=== PATIENT | male | born 1960 ===

== ENCOUNTER 2018-06-18 16:07 | Emergency (ER) | payer OTHER ==
[2018-06-18 16:16] VITALS: BMI 27.4
[2018-06-18 16:21] VITALS: BP 151/83; PULSE 77; RESP 18; TEMP 98; O2SAT 99
--- NOTE | 2018-06-18 16:29 | C.PDOC ---
Time Seen by Provider: 06/18/18 16:23 Chief Complaint (Nursing): Lower Extremity Problem/Injury Past Medical History Vital Signs: Last Vital Signs Temp 98.0 F 06/18/18 16:19 Pulse 77 06/18/18 16:19 Resp 18 06/18/18 16:19 BP 151/83 H 06/18/18 16:19 Pulse Ox 99 06/18/18 16:19 - Medical History PMH: HTN, Hypercholesterolemia - Social History Hx Alcohol Use: No Hx Substance Use: No - Immunization History Hx Tetanus Toxoid Vaccination: No Hx Influenza Vaccination: No Hx Pneumococcal Vaccination: No ED Course And Treatment O2 Sat by Pulse Oximetry: 99 Disposition Counseled Patient/Family Regarding: Diagnosis, Need For Followup, Rx Given - Disposition Referrals: [facility] [Outside] [facility] at [facility] [Outside] Disposition: HOME/ ROUTINE Disposition Time: 16:28 Condition: GOOD Prescriptions: Gabapentin [Neurontin] 300 mg PO TID #30 cap traMADol/Acetaminophen [Ultracet 325 MG-37.5 MG] 1 tab PO TID #21 tab Instructions: Paresthesias (DC), Chronic Pain (DC) Print Language: BOTSWANAN - Clinical Impression Clinical Impression: Paresthesia of foot, bilateral, Chronic pain
--- NOTE | 2018-06-18 16:32 | C.PDOC ---
History Of Present Illness 57 year old male presents to the emergency department with complaints of exacerbation of chronic foot pain for the last week. Patient states that he works on his feet a lot, and complains of a burning sensation in both feet. Time Seen by Provider: 06/18/18 16:23 Chief Complaint (Nursing): Lower Extremity Problem/Injury History Per: Patient History/Exam Limitations: no limitations Onset/Duration Of Symptoms: Days (7) Current Symptoms Are (Timing): Still Present - Ankle/Foot Description Of Injury: Other (burning pain) Past Medical History Reviewed: Historical Data, Nursing Documentation, Vital Signs Vital Signs: Last Vital Signs Temp 98.0 F 06/18/18 16:19 Pulse 77 06/18/18 16:19 Resp 18 06/18/18 16:19 BP 151/83 H 06/18/18 16:19 Pulse Ox 99 06/18/18 16:32 - Medical History PMH: HTN, Hypercholesterolemia Surgical History: No Surg Hx Family History: States: No Known Family Hx - Social History Hx Alcohol Use: No Hx Substance Use: No - Immunization History Hx Tetanus Toxoid Vaccination: No Hx Influenza Vaccination: No Hx Pneumococcal Vaccination: No Review Of Systems Except As Marked, All Systems Reviewed And Found Negative. Musculoskeletal: Positive for: Foot Pain (bilateral) Neurological: Negative for: Weakness, Numbness Physical Exam - Physical Exam Appears: Non-toxic, No Acute Distress Skin: Warm, Dry Head: Atraumatic, Normacephalic Eye(s): bilateral: Normal Inspection Neck: Normal, Supple Chest: Symmetrical Cardiovascular: Rhythm Regular Respiratory: Normal Breath Sounds Extremity: Normal ROM, No Tenderness, No Calf Tenderness, No Swelling Extremity: Bilateral: Atraumatic, Normal Color And Temperature Neurological/Psych: Oriented x3, Normal Speech, Normal Cognition ED Course And Treatment O2 Sat by Pulse Oximetry: 99 (RA) Pulse Ox Interpretation: Normal Progress Note: Plan: Tylenol 650mg PO. Neurontin 300mg PO. Ultram 50mg PO Disposition Counseled Patient/Family Regarding: Diagnosis, Need For Followup, Rx Given - Disposition Referrals: [facility] [Outside] [facility] [Outside] Disposition: HOME/ ROUTINE Disposition Time: 16:30 Condition: GOOD Prescriptions: Gabapentin [Neurontin] 300 mg PO TID #30 cap traMADol/Acetaminophen [Ultracet 325 MG-37.5 MG] 1 tab PO TID #21 tab Instructions: Chronic Pain (DC), Paresthesias (DC) Forms: [employer] (Indian) Print Language: PARAGUAYAN - Clinical Impression Clinical Impression: Paresthesia of foot, bilateral, Chronic pain - Scribe Statement The provider has reviewed the documentation as recorded by the Scribe (Brandon Gilbert) Provider Attestation: All medical record entries made by the Scribe were at my direction and personally dictated by me. I have reviewed the chart and agree that the record accurately reflects my personal performance of the history, physical exam, medical decision making, and the department course for this patient. I have also personally directed, reviewed, and agree with the discharge instructions and disposition.
== END 2018-06-18 16:45 | disposition home or self-care (01) ==
LOC: C.ER 16:07
DX: R20.2 Paresthesia of skin (principal); G89.29 Other chronic pain; E78.00 Pure hypercholesterolemia, unspecified; I10 Essential (primary) hypertension

== ENCOUNTER 2018-06-20 15:55 | Emergency (ER) | payer OTHER ==
[2018-06-20 15:56] VITALS: BMI 27.4
[2018-06-20 16:06] VITALS: BP 162/79; PULSE 81; RESP 18; TEMP 98.2; O2SAT 100
--- NOTE | 2018-06-20 16:46 | RAD ---
Date of service: 06/20/2018 PROCEDURE: Left small finger radiographs. HISTORY: injury COMPARISON: None. TECHNIQUE: AP radiograph of the left hand, as well as spot oblique and lateral images of left small finger were obtained. FINDINGS: LEFT SMALL FINGER: Heterotopic calcification or an old chip or avulsion fracture felt to the lateral to the distal segment middle phalanx left small finger with acute fracture not favored. No large fracture involving the left small finger. Incidental note is made of heterotopic calcification related to the proximal phalanx left ring finger, in a pattern fracture deformity proximal phalanx left long finger and partial amputation of the left index finger with only proximal to mid segment of the proximal phalanx remaining. JOINTS: Normal. SOFT TISSUES: Normal. OTHER FINDINGS: None. IMPRESSION: No definite acute fracture dislocation. Heterotopic calcification or old healed avulsion/chip fracture related to the lateral cortical margins of the middle phalanx left small finger. Clinically correlate further. Incidental subtotal amputation left index finger.
--- NOTE | 2018-06-20 16:54 | C.PDOC ---
History Of Present Illness 57yo male, presents to ED with complaints of pain in left fifth digit. Pt was in ED two days ago for injury at work after something fell on him. States he had pain in his pinky finger, but he forgot to complain about it. Denies numbness/weakness, fever. Time Seen by Provider: 06/20/18 16:04 Chief Complaint (Nursing): Finger,Hand,&Wrist History Per: Patient History/Exam Limitations: no limitations Past Medical History Reviewed: Historical Data, Nursing Documentation, Vital Signs Vital Signs: Last Vital Signs Temp 98.2 F 06/20/18 16:00 Pulse 81 06/20/18 16:00 Resp 18 06/20/18 16:00 BP 162/79 H 06/20/18 16:00 Pulse Ox 100 06/20/18 19:52 - Medical History PMH: HTN, Hypercholesterolemia Family History: States: No Known Family Hx - Social History Hx Alcohol Use: No Hx Substance Use: No - Immunization History Hx Tetanus Toxoid Vaccination: No Hx Influenza Vaccination: No Hx Pneumococcal Vaccination: No Review Of Systems Constitutional: Negative for: Fever Musculoskeletal: Positive for: Hand Pain Neurological: Negative for: Weakness, Numbness Physical Exam - Physical Exam Appears: Non-toxic, No Acute Distress Skin: Warm, Dry, No Rash Head: Atraumatic Eye(s): bilateral: Normal Inspection Nose: Normal Oral Mucosa: Moist Lips: Normal Appearing Neck: Normal ROM Chest: Symmetrical Respiratory: No Accessory Muscle Use Extremity: Other (Left hand: 5th digit with swelling and tenderness to DIP) Pulses: Left Radial: Normal, Right Radial: Normal Neurological/Psych: Oriented x3, Normal Speech ED Course And Treatment O2 Sat by Pulse Oximetry: 100 Pulse Ox Interpretation: Normal (RA) - Other Rad XR hand X-Ray: Viewed By Me, Read By Radiologist Interpretation: Accession No. : [id number]. Patient Name / ID : SOFIE Rivas / [id number]. Exam Date : 06/20/2018 16:11:56 ( Approved ). Study Comment : Sex / Age : M / 57Y. Creator : Mono Henriquez MD. Dictator : Mono Henriquez MD. Disbursing Agent : Snath Handle Assembler : Mono Henriquez MD. Approver2 : Report Date : 06/20/2018 16:44:31. My Comment : . Date of service: 06/20/2018. PROCEDURE: Left small finger radiographs. HISTORY: injury. COMPARISON: None. TECHNIQUE: AP radiograph of the left hand, as well as spot oblique and lateral images of left small finger were obtained. FINDINGS: LEFT SMALL FINGER: Heterotopic calcification or an old chip or avulsion fracture felt to the lateral to the distal segment middle phalanx left small finger with acute fracture not favored. No large fracture involving the left small finger. Incidental note is made of heterotopic calcification related to the proximal phalanx left ring finger, in a pattern fracture deformity proximal phalanx left long finger and partial amputation of the left index finger with only proximal to mid segment of the proximal phalanx remaining. JOINTS: Normal. SOFT TISSUES: Normal. OTHER FINDINGS: None. IMPRESSION: No definite acute fracture dislocation. Heterotopic calcification or old healed avulsion/chip fracture related to the lateral cortical margins of the middle phalanx left small finger. Clinically correlate further. Incidental subtotal amputation left index finger. Medical Decision Making Medical Decision Making: Finger splint was applied by CP and checked by me. Patient was referred to the hand specialist . Disposition - Disposition Referrals: Sheree Yuan MD [Staff Provider] - Disposition: HOME/ ROUTINE Disposition Time: 16:52 Condition: STABLE Additional Instructions: Follow up with hand specialist within 2-3 days. Return to ED if feel worse. Instructions: Finger Fracture (DC) Forms: [employer] (Spanish) - Clinical Impression Clinical Impression: Finger fracture - Scribe Statement The provider has reviewed the documentation as recorded by the Scribe (Breanna Reinoso) All medical record entries made by the Scribe were at my direction and personally dictated by me. I have reviewed the chart and agree that the record accurately reflects my personal performance of the history, physical exam, medical decision making, and the department course for this patient. I have also personally directed, reviewed, and agree with the discharge instructions and disposition.
== END 2018-06-20 17:07 | disposition home or self-care (01) ==
LOC: C.ER 15:55
DX: S62.627A Displaced fracture of middle phalanx of left little finger, initial encounter for closed fracture (principal); W22.8XXA Striking against or struck by other objects, initial encounter; Y92.89 Other specified places as the place of occurrence of the external cause; Y99.0 Civilian activity done for income or pay

== ENCOUNTER 2018-07-02 14:43 | Emergency (ER) | payer OTHER ==
[2018-07-02 14:44] VITALS: BMI 27.4
[2018-07-02 15:15] VITALS: BP 130/80; PULSE 93; RESP 20; TEMP 98.1; O2SAT 100
--- NOTE | 2018-07-02 16:16 | C.PDOC ---
History Of Present Illness The patient is a 57 year old male who was evaluated in this ED on 06/20 after he sustained a left 5th finger injury at work. XR of the finger showed questionable fracture; the finger was splinted and patient was advised to follow up with hand specialist. As per patient, his job does not want to open a workman's compensation case. Patient states he doesn't have insurance or jt care so he was unable to secure an appointment with hand specialist. Patient returns to the ED because he states his finger still hurts. Patient denies any new injuries and extremity numbness/weakness. Chief Complaint (Nursing): Finger,Hand,&Wrist History Per: Patient History/Exam Limitations: no limitations Onset/Duration Of Symptoms: Days Current Symptoms Are (Timing): Still Present Quality: "Pain" Additional History Per: Patient Past Medical History Reviewed: Historical Data, Nursing Documentation, Vital Signs Vital Signs: Last Vital Signs Temp 98.1 F 07/02/18 15:08 Pulse 93 H 07/02/18 15:08 Resp 20 07/02/18 15:08 BP 130/80 07/02/18 15:08 Pulse Ox 100 07/02/18 19:04 - Medical History PMH: HTN, Hypercholesterolemia Surgical History: No Surg Hx Family History: States: Unknown Family Hx - Social History Hx Alcohol Use: No Hx Substance Use: No - Immunization History Hx Tetanus Toxoid Vaccination: No Hx Influenza Vaccination: No Hx Pneumococcal Vaccination: No Review Of Systems Musculoskeletal: Positive for: Other (left pinky finger pain ) Neurological: Negative for: Weakness, Numbness Physical Exam - Physical Exam Appears: Non-toxic, No Acute Distress Skin: Normal Color, Warm, Dry Extremity: Tenderness (slight, to left 5th finger ), Capillary Refill (less than 2 seconds ), Other ( left 5th finger range of motion with pain. loose finger splint ) Neurological/Psych: Oriented x3, Normal Speech, Normal Cognition ED Course And Treatment O2 Sat by Pulse Oximetry: 100 (on RA) Pulse Ox Interpretation: Normal - Other Rad hand XR X-Ray: Viewed By Me, Read By Radiologist Interpretation: 07/02/2018. PROCEDURE: Left small finger radiographs. HISTORY : injury/pain. COMPARISON: None. TECHNIQUE: AP radiograph of the left hand , as well as spot oblique and lateral images of left small finger were obtained. FINDINGS: LEFT SMALL FINGER: Left small finger normal, without fracture of focal lesion. Absent distal aspect 3rd and 4th distal phalanges. 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 Posttraumatic deformity 3rd proximal phalanx. JOINTS: Normal. SOFT TISSUES: Normal. OTHER FINDINGS: None. IMPRESSION: No acute fracture. Progress Note: Left hand 5th digit XR ordered. Results are unremarkable. Finger was re-splinted by CP and was checked by me. On re-examination, patient is resting comfortably, showing no signs of distress and is stable for discharge. Patient is advised to f/u with orthopedic care within 1-2 days for further evaluation. Disposition - Disposition Referrals: [facility] at [facility] [Outside] Disposition: HOME/ ROUTINE Disposition Time: 16:11 Condition: STABLE Additional Instructions: Follow up in Clinic within 1-2 days.Return to ED if feel worse. Instructions: Finger Sprain (DC) Forms: [employer] (Solomon Islander) Print Language: SINHALA - Clinical Impression Clinical Impression: Finger sprain - PA / CATHETER BUILDER / Resident Statement MD/DO has reviewed & agrees with the documentation as recorded. - Scribe Statement The provider has reviewed the documentation as recorded by the Scribe (Natacha Camara) All medical record entries made by the Scribe were at my direction and personally dictated by me. I have reviewed the chart and agree that the record accurately reflects my personal performance of the history, physical exam, medical decision making, and the department course for this patient. I have also personally directed, reviewed, and agree with the discharge instructions and disposition.
--- NOTE | 2018-07-02 16:32 | RAD ---
Date of service: 07/02/2018 PROCEDURE: Left small finger radiographs. HISTORY: injury/pain COMPARISON: None. TECHNIQUE: AP radiograph of the left hand, as well as spot oblique and lateral images of left small finger were obtained. FINDINGS: LEFT SMALL FINGER: Left small finger normal, without fracture of focal lesion. Absent distal aspect 3rd and 4th distal phalanges. 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 Posttraumatic deformity 3rd proximal phalanx. JOINTS: Normal. SOFT TISSUES: Normal. OTHER FINDINGS: None. IMPRESSION: No acute fracture.
== END 2018-07-02 16:25 | disposition home or self-care (01) ==
LOC: C.ER 14:43
DX: S63.617A Unspecified sprain of left little finger, initial encounter (principal); X58.XXXA Exposure to other specified factors, initial encounter; Y99.0 Civilian activity done for income or pay; E78.00 Pure hypercholesterolemia, unspecified; I10 Essential (primary) hypertension

== ENCOUNTER 2018-11-01 23:55 | Emergency (ER) | payer OTHER ==
[2018-11-01 23:57] VITALS: BMI 27.4
[2018-11-02 00:17] VITALS: TEMP 97.3
--- NOTE | 2018-11-02 00:24 | C.PDOC ---
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 Patient reports he ate some avocado before the symptoms started. Patient describes his pain as dull, cramping. Patient denies fever, chills, diarrhea, rash, back pain. Time Seen by Provider: 11/02/18 00:23 Chief Complaint (Nursing): Abdominal Pain History Per: Patient History/Exam Limitations: no limitations Onset/Duration Of Symptoms: Hrs (2) Current Symptoms Are (Timing): Still Present Context: Food Location Of Pain/Discomfort: Diffuse Quality Of Discomfort: Dull, Cramping Associated Symptoms: Vomiting. denies: Nausea, Diarrhea, Urinary Symptoms Exacerbating Factors: Food Recent travel outside of the [place]: No Additional History Per: Patient Past Medical History Reviewed: Historical Data, Nursing Documentation, Vital Signs Vital Signs: Last Vital Signs Temp 97.3 F L 11/02/18 00:16 Pulse 87 11/02/18 00:11 Resp 20 11/02/18 00:11 BP 92/59 L 11/02/18 00:16 Pulse Ox 95 11/02/18 00:11 - Medical History PMH: HTN, Hypercholesterolemia Surgical History: No Surg Hx Family History: States: Unknown Family Hx - Social History Hx Alcohol Use: No Hx Substance Use: No - Immunization History Hx Tetanus Toxoid Vaccination: No Hx Influenza Vaccination: No Hx Pneumococcal Vaccination: No Review Of Systems Constitutional: Negative for: Fever, Chills Cardiovascular: Negative for: Chest Pain Respiratory: Negative for: Shortness of Breath Gastrointestinal: Positive for: Vomiting, Abdominal Pain. Negative for: Diarrhea Genitourinary: Negative for: Dysuria, Hematuria Musculoskeletal: Negative for: Back Pain Skin: Negative for: Rash Physical Exam - Physical Exam Appears: Non-toxic, No Acute Distress Skin: Warm, Dry Head: Normacephalic Eye(s): bilateral: Normal Inspection Oral Mucosa: Moist Neck: Supple Chest: Symmetrical Cardiovascular: Rhythm Regular Respiratory: No Rales, No Rhonchi, No Wheezing Gastrointestinal/Abdominal: Soft, Tenderness (diffuse), No Guarding, No Rebound Extremity: Normal ROM, No Tenderness, No Swelling Neurological/Psych: Oriented x3, Normal Speech, Normal Cognition Gait: Steady ED Course And Treatment - Laboratory Results Result Diagrams: 11/02/18 01:16 11/02/18 01:16 ECG: Interpreted By Me, Viewed By Me ECG Rhythm: Sinus Rhythm (79), Nonspecific Changes O2 Sat by Pulse Oximetry: 95 (ON RA) Pulse Ox Interpretation: Normal Progress Note: Plan: - EKG. - Labs. - Protonix 40 mg IVP. - IV fluids. - Zofran 4 mg IVP. - UA Reevaluation Time: 05:58 Reassessment Condition: Improved Disposition Counseled Patient/Family Regarding: Studies Performed, Diagnosis, Need For Followup, Rx Given - Disposition Referrals: [facility] [Outside] Disposition: HOME/ ROUTINE Disposition Time: 00:24 Condition: FAIR Additional Instructions: Please return if symptoms recur Prescriptions: Ondansetron ODT [Zofran ODT] 1 odt PO BID PRN #6 odt PRN Reason: Nausea/Vomiting Pantoprazole Sodium [Protonix] 20 mg PO DAILY #14 ect Instructions: Acute Abdomen (Belly Pain), Adult (DC), Food Poisoning (DC) Forms: [employer] (Irish) Print Language: AZERI - Clinical Impression Clinical Impression: Abdominal pain, Nausea, Vomiting - Scribe Statement The provider has reviewed the documentation as recorded by the Scribe Trey Hill All medical record entries made by the Scribe were at my direction and personally dictated by me. I have reviewed the chart and agree that the record accurately reflects my personal performance of the history, physical exam, medical decision making, and the department course for this patient. I have also personally directed, reviewed, and agree with the discharge instructions and disposition.
[2018-11-02] MEDS ORDERED: Sodium Chloride 0.9% 1,000 ML IV ONE (01:08)
[2018-11-02 01:21] LABS: BASO % 0.4 % (0.0-2.0); EOS # 0.2 K/uL (0.0-0.7); EOS % 1.9 % (0.0-4.0); HEMOGLOBIN 13.8 g/dL (12.0-18.0); LYMPH # 3.3 K/uL (1.0-4.3); LYMPH % 28.9 % (20.0-40.0); MEAN CELL VOLUME 84.2 fL (80.0-94.0); MEAN CORPUSCULAR HEMOGLOBIN 28.4 pg (27.0-31.0); MEAN CORPUSCULAR HGB CONC 33.7 g/dL (33.0-37.0); MEAN PLATELET VOLUME 8.7 fL (7.2-11.7); MONO # 1.1 K/uL (0.0-0.8); MONO % 9.4 % (0.0-10.0); NEUT # 6.7 K/uL (1.8-7.0); NEUT % 59.4 % (50.0-75.0); NRBC % 0.1 % (0.0-2.0); RBC 4.85 Mil/uL (4.40-5.90); WHITE BLOOD COUNT 11.3 K/uL (4.8-10.8)
[2018-11-02 01:28] LABS: INR 1.2; PROTHROMBIN TIME 13.2 SECONDS (9.7-12.2)
[2018-11-02] MEDS ORDERED: Sodium Chloride 0.9% 1,000 ML ONE (01:28)
[2018-11-02 01:42] LABS: ALB/GLOB RATIO 1.4 (1.0-2.1); ALBUMIN 4.2 g/dL (3.5-5.0); ALT/SGPT 72 U/L (21-72); AST/SGOT 40 U/L (17-59); BLOOD UREA NITROGEN 16 mg/dL (9-20); CALCIUM 8.8 mg/dl (8.6-10.4); GFR NON-AFRICAN AMERICAN > 60; LIPASE 48 U/L (23-300)
[2018-11-02 04:23] VITALS: RESP 18
[2018-11-02 06:25] VITALS: BP 125/67; PULSE 80; O2SAT 99
[2018-11-02 06:30] LABS: URINE BILIRUBIN NEGATIVE (NEGATIVE); URINE BLOOD NEGATIVE (NEGATIVE); URINE CLARITY Clear (Clear); URINE COLOR Yellow (YELLOW); URINE GLUCOSE (UA) NORMAL (Normal); URINE HYALINE CAST 0-2 /lpf (0-2); URINE LEUKOCYTE ESTERASE NEG Leu/uL (Negative); URINE PROTEIN NEGATIVE (NEGATIVE); URINE UROBILINOGEN NORMAL mg/dL (0.2-1.0)
== END 2018-11-02 07:01 | disposition home or self-care (01) ==
LOC: C.ER 23:55
DX: R10.9 Unspecified abdominal pain (principal); R11.2 Nausea with vomiting, unspecified
CPT/HCPCS: 80053; 81001; 82948; 83690; 85025; 85610; 85730; 93005; 96361; 96374; 96375; 99285; C9113; J2405; J7030